=== PATIENT | female | born 1940 | race Caucasian/White ===

== ENCOUNTER 2016-12-19 15:31 | Inpatient (IN) | payer MEDICARE, BC ==
--- NOTE | ~2016-12-19 | OP ---
Record Of Operation [facility] [address] [place]. [address] NAME: PAM FRIEDMAN : 42 STATUS : ADM IN PAT#: [id number] AGE: 76 ADM/REG DATE : 12/19/16 MR#: [id number] REPORT SERV DATE: 12/20/16 DICTATED BY: BORIS FLORES DATE: 12/20/16 REPORT STATUS : Draft TRANSCRIBED BY: MODL DATE: 12/20/16 DATE OF PROCEDURE: 12/20/2016 PREOPERATIVE DIAGNOSIS: Left intertrochanteric femur fracture. POSTOPERATIVE DIAGNOSIS: Left intertrochanteric femur fracture. PROCEDURE: Open reduction and internal fixation of the left intertrochanteric femur fracture with trochanteric nail. SURGEON: Boris Flores M.D. [employer]IONICS SUPERVISOR: Korin Mullen. ANESTHESIA: General endotracheal. ESTIMATED BLOOD LOSS: 100 mL. COMPLICATIONS: None. DRAINS: None. IMPLANTS: [place] Gamma 3 nail. INDICATIONS FOR SURGERY: Ms Friedman is a 76-year-old female, who sustained the above-mentioned fracture in a fall. It was recommended that she undergo open reduction and internal fixation. Risks of the procedure as detailed in the orthopedic consult and operative consent were discussed prior to proceeding, and she fully understood, and has requested to proceed. DESCRIPTION OF PROCEDURE: The patient was brought to the operating room and after adequate induction of anesthesia was positioned on the [place] fracture table in the supine position. The nonoperative hip was placed in flexion and abduction to facilitate radiography. The operative leg was placed in gentle skin traction. The fracture was then reduced to a position of anatomic reduction. Appropriate reduction was confirmed using biplanar fluoroscopic guidance. The hip was then prepped and draped in the usual sterile fashion. A 3-4cm incision was made proximal to the tip of the greater trochanter using a #10 blade. The subcutaneous tissues were dissected sharply, electrocautery was used as needed to maintain hemostasis. The fascia gwen was divided in line with the incision. The guidewire for the Gamma III nail system was then placed in the tip of the greater trochanter, in line with the intramedullary canal of the femur. The appropriate guidewire placement was confirmed using biplanar fluoroscopy. The guidewire was then over reamed with a 15.5 mm starting reamer. Once the starting hole had been completed, a short Gamma nail was manually impacted over the guidewire to the appropriate depth. Appropriate nail placement was confirmed using biplanar Record Of Operation [place] [address] [place]. [address] NAME: PAM FRIEDMAN : 42 STATUS : ADM IN PAT#: [id number] AGE: 76 ADM/REG DATE : 12/19/16 MR#: [id number] REPORT SERV DATE: 12/20/16 DICTATED BY: BORIS FLORES DATE: 12/20/16 REPORT STATUS : Draft TRANSCRIBED BY: MODL DATE: 12/20/16 fluoroscopy. The proximal compression screw guides were then placed through a stab incision in the lateral aspect of the femur. A guide pin was placed in approximately the center position of the femoral head using biplanar fluoroscopic guidance. The guide pin was overreamed with the compression screw reamer and the depth measured for the compression screw. The compression screw was then placed to within 5mm of the subchondral bony plate of the femoral head. The proximal set screw was then placed in dynamic fashion. Attention was then turned to the distal locking screw. The screw was placed through a stab wound on the lateral aspect of the femur using the appropriate guides and fluoroscopic guidance. Once the screw had been fully tightened the guides were removed. Final fluoroscopic images were then obtained and saved in both planes. The wounds were then copiously irrigated with normal saline. The fascia gwen was closed with interrupted #1 Vicryl suture in [id number] fashion, the subcutaneous tissues were approximated with interrupted 2-0 Vicryl suture and the skin stapled. A sterile dressing was applied and the patient was awakened and taken to the Recovery Room in stable condition. POSTOP PLAN: The patient is to be mobilized weightbearing as tolerated on the operative lower extremity. The patient will be on Coumadin and mechanical DVT prophylaxis. KELY/JULIAN Boris Flores M.D. / [id number] CC: Kath Godoy M.D.
--- NOTE | ~2016-12-19 | HP ---
History And Physical [place] [id number] [facility] [place]. [address] NAME: PAM FRIEDMAN : 42 STATUS : ADM IN [facility]#: [id number] AGE: 76 ADM/REG DATE : 12/19/16 MR#: [id number] REPORT SERV DATE: 12/19/16 DICTATED BY: GODFREY NORMAN DATE: 12/19/16 REPORT STATUS : Draft TRANSCRIBED BY: JULIAN DATE: 12/19/16 DATE OF ADMISSION: 12/19/2016 HISTORY OF PRESENT ILLNESS: Ms. Friedman is a 76-year-old female patient, who was brought in because she accidentally fell at [facility] and could not get up. X-ray showed a left hip fracture and hence, she is being admitted for left hip fracture. The patient at this time states that she is unable to move her left leg , and there is pain in the left lower extremity. Other than that, there are no other complaints whatsoever now. REVIEW OF SYSTEMS: Negative for any blurry vision even though, the patient said that she had a little headache and was nauseated this morning before [facility]. There is no chest pain, shortness of breath above baseline, nausea and vomiting, abdominal pain right now. The patient denies any dysuria, hematuria, or blood in stool. The patient does complain of chronic back pain and has had difficulty walking because of the back pain before. Otherwise, review of systems for the rest of the systems were negative. PAST MEDICAL HISTORY: Significant for hypertension, hyperlipidemia, Graves disease with ophthalmopathy for which the patient had to have partial thyroidectomy just about a month and a half ago. The patient now is on replacement Synthroid therapy and also getting treatment for the Graves ophthalmopathy at the [facility]. The patient also has a history of chronic low back pain, dementia, difficulty walking mainly because of back pain issues. There is also diagnoses of generalized anxiety disorder and insomnia. PAST SURGICAL HISTORY: Significant for esophageal stretching in the past for which the patient has difficulty swallowing hard solid food off and on. The patient does great with soft mechanical diet however. SOCIAL HISTORY: The patient smokes about a half a pack to a pack a day. She denies any significant alcohol use or any illicit drug use. The patient lives primarily with daughter and son-in-law. FAMILY HISTORY: Positive for stroke and heart disease in father. Colon cancer on mother's side. ALLERGIES: THE PATIENT DOES NOT HAVE ANY KNOWN DRUG ALLERGIES. HOME MEDICATIONS: Reviewed and noted that she is on the following medications: Trazodone 50 mg p.o. at bedtime, aspirin 81 mg p.o. daily, calcium and vitamin D 500 mg p.o. b.i.d., Colace 100 mg p.o. b.i.d., tramadol 50 mg p.o. b.i.d. for the back pain, hydrochlorothiazide 25 mg once a day, multivitamin tablet, Prilosec 40 mg p.o. once a day, atenolol 25 mg p.o. daily, Aricept 10 mg p.o. daily, Zocor 20 mg p.o. daily, Xanax 1 mg p.o. at bedtime, History And Physical [address] [address] NAME: PAM FRIEDMAN : 42 STATUS : ADM IN [facility]#: [id number] AGE: 76 ADM/REG DATE : 12/19/16 MR#: [id number] REPORT SERV DATE: 12/19/16 DICTATED BY: GODFREY NORMAN DATE: 12/19/16 REPORT STATUS : Draft TRANSCRIBED BY: JULIAN DATE: 12/19/16 levothyroxine 88 mcg p.o. daily, Tylenol p.r.n., ibuprofen p.r.n., and also takes Proventil inhaler two puffs every four hours on an as needed basis for shortness of breath. PHYSICAL EXAMINATION: GENERAL: On examination, the patient is alert, oriented, and is able to give her history herself. VITAL SIGNS: The patient's vital signs at this time show that she has a blood pressure of 143/63, afebrile, pulse is 66 per minute, respirations 21 per minute, and oxygen saturation 96% on room air. 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 The patient however is able to see with both eyes clearly as of now. There is no facial droop or asymmetry. NECK: Examination of the neck does not reveal any masses or lymphadenopathy. There is no JVD. CARDIOVASCULAR SYSTEM: S1, S2 appreciated. Sinus rhythm. No murmurs, rubs, or gallops noted. RESPIRATORY SYSTEM: Clear lungs. No rales or rhonchi noted. ABDOMEN: Soft, nontender, nondistended. Bowel sounds are noted. No hepatosplenomegaly noted. No tenderness noted. EXTREMITIES: There is no pedal edema. Pedal pulses are felt in both feet, DP, PT.+. The patient's left lower extremity is turned outwards and rotated outwards from the left hip fracture. She is able to wiggle her toes on the left foot, but unable to move the left leg. However, the right leg is normal with normal movements. NEUROLOGIC: No deficits at this time, but the patient does have history of early mild dementia for which she has been evaluated by Dr. Barrera in the past and continues to be on Aricept. MUSCULOSKELETAL: The patient has low back pain issues that continue to bother her now and cause her to have difficulty walking even now. 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 PSYCHIATRIC: The patient does have insomnia and generalized anxiety for which she takes medications. LABORATORY DATA: At this time, urinalysis shows normal UA with small leukocyte esterase, but no evidence of infection. CBC shows WBC count of 11,000, hemoglobin and hematocrit normal, platelets normal, INR is normal. Electrolytes show that it is normal. BUN and creatinine are normal. Glucose is slightly elevated at 147. Troponin I is less than 0.02. The patient's EKG shows normal sinus rhythm and completely normal with no abnormalities. ASSESSMENT: 1. Left femoral fracture in a 76-year-old patient who probably has osteoporosis from multiple reasons including tobacco use and also from hyperthyroidism and Graves disease. Hence, this has resulted in left femoral fracture with low fall itself. Pain control and supportive care will be given, and Orthopedic Surgery will be consulted. 2. We will continue all her home medications for her hypertension, hyperlipidemia, also continue her medications that she takes for dementia that include Aricept and trazodone for sleep. We will decrease Xanax to 0.5 mg and also stop her tramadol. Instead we will give her Percocet 5/325 p.o. q.4 hours p.r.n. for pain and watch her. We will History And Physical [place] [address] [facility] [address] NAME: KINGPAM EDUARDO : 42 STATUS : ADM IN PAT#: [id number] AGE: 76 ADM/REG DATE : 12/19/16 MR#: [id number] REPORT SERV DATE: 12/19/16 DICTATED BY: GODFREY NORMAN DATE: 12/19/16 REPORT STATUS : Draft TRANSCRIBED BY: MODL DATE: 12/19/16 give her symptomatic and supportive care, and I will follow her along with Orthopedic Surgery. RRA/JULIAN Godfrey Norman M.D. / [id number] CC: Kath Godoy M.D.
--- NOTE | ~2016-12-19 | DS ---
Discharge Summary [facility] [address] [place]. [address] NAME: PAM RESENDIZ : 44 STATUS : ADM IN [facility]#: [id number] AGE: 76 ADM/REG DATE : 12/19/16 MR#: [id number] REPORT SERV DATE: 12/22/16 DICTATED BY: JASWANT HO DATE: 12/22/16 REPORT STATUS : Draft TRANSCRIBED BY: JULIAN DATE: 12/22/16 ADMISSION DATE: 12/19/2016 DISCHARGE DATE: 12/22/2016 DIAGNOSES ON ADMISSION: 1. Left femoral fracture. 2. History of dementia. 3. Anxiety. DIAGNOSES ON DISCHARGE: 1. Status post left femoral fracture, status post open reduction and internal fixation of the left intertrochanteric femur fracture with trochanteric nail on 12/20/2016. 2. Hypertension, controlled. 3. History of dementia. 4. History of Graves disease, status post partial thyroidectomy. On Synthroid chronically. HISTORY OF PRESENT ILLNESS: Per dictation of Dr. Marycruz Castillo who admitted this patient on 12/19/2016, and the patient was seen by Dr. Castillo until 12/21/2016, when I started to see this patient. The patient has been stable. She had an uneventful course after surgery. She is doing well, and she is undergoing physical therapy. Her blood pressure is controlled. Lab work looks good. She is ready to be discharged to rehab. Today, she was seen by Dr. Flores, and he recommended the patient to be discharged to rehab, as well as he recommended to follow up with him in three weeks. Her blood pressure has been in the normal range, 132/69 and 138/62. She is doing well. She is still complaining of postsurgical pain. Pain medications were prescribed by Dr. Mark Anne's nurse practitioner. DISCHARGE MEDICATIONS: Xanax 0.5 mg at bedtime, Tenormin 25 daily, calcium with vitamin D 600 p.o. b.i.d., Colace 100 mg b.i.d., Aricept 10 mg daily, iron 300 p.o. breakfast and supper, Synthroid 88 mcg, multivitamins daily, nicotine patch 21 mg daily, omeprazole 40 mg at bedtime, Zocor 20 mg daily, trazodone 50 mg at bedtime, Coumadin sliding scale was recommended per Dr. Juarez's nurse practitioner, aspirin 81 mg daily, tramadol 50 mg p.o. p.r.n. for pain. Prescription was given per nurse practitioner of Dayana Espinosa. The patient was recommended to discontinue ibuprofen. The patient was discharged to rehab in a stable condition. Spent 45 minutes on discharge. MG/MODL Jaswant Ho M.D. Discharge Summary [address] [place]. [address] NAME: PAM RESENDIZ : 42 STATUS : ADM IN [facility]#: [id number] AGE: 76 ADM/REG DATE : 12/19/16 MR#: [id number] REPORT SERV DATE: 12/22/16 DICTATED BY: JASWANT HO DATE: 12/22/16 REPORT STATUS : Draft TRANSCRIBED BY: JULIAN DATE: 12/22/16 / [id number] CC: Kath Tidwell M.D. William Hartley, M.D.
--- NOTE | ~2016-12-19 | CN ---
Consultation Report [facility] [address] [place]. [address] NAME: PAM FRIEDMAN : 42 STATUS : ADM IN PAT#: [id number] AGE: 76 ADM/REG DATE : 12/19/16 MR#: [id number] REPORT SERV DATE: 12/20/16 DICTATED BY: BORIS FLORES DATE: 12/20/16 REPORT STATUS : Draft TRANSCRIBED BY: MODL DATE: 12/20/16 DATE OF CONSULTATION: 12/20/2016 CHIEF COMPLAINT: Left hip pain. HISTORY: Ms Friedman is a 76-year-old female, who fell yesterday landing on her left side. She had immediate onset of severe left hip pain and was unable to ambulate after the fall. She presented to [facility] Emergency Room, where x-rays showed a displaced left intertrochanteric femur fracture. I have now been asked to see her for evaluation and treatment. On questioning, she complains of only left hip pain. She denies any mental status changes or loss of consciousness at the time of the fall. PHYSICAL EXAMINATION: GENERAL: She is awake and alert. She is oriented x2. NECK: Nontender. EXTREMITIES: She has no evidence of bony injury to either upper extremity or her right lower extremity. Her left lower extremity is shortened and externally rotated. MUSCULOSKELETAL: She has no pain with AP or lateral compression of her pelvis. She is unable to tolerate passive or active left hip range of motion due to severe pain. She has no tenderness in the mid thigh distally. She has an abrasion over the anterior aspect of her left knee. There was no knee effusion. Her knee range of motion is from 0 to 90 degrees limited by her hip pain. She has no evidence of varus or valgus instability of her knee. She has palpable pedal pulses and normal sciatic nerve function on the left. DIAGNOSTIC STUDIES: X-rays of her left hip show displaced left intertrochanteric femur fracture. IMPRESSION: Displaced left intertrochanteric femur fracture. PLAN: I have discussed treatment options with Ms Friedman with recommendation for open reduction and internal fixation. Risks of the procedure were discussed including infection, neurovascular damage, DVT, PE, blood loss requiring transfusion, nonunion, malunion, loss of fixation, possible future need for removal of hardware, anesthetic complications and others. She has a good understanding and has requested to proceed with surgical scheduling. KELY/JULIAN Boris Flores M.D. Consultation Report [facility] [address] [place] [address] NAME: PAM FRIEDMAN : 42 STATUS : ADM IN PAT#: [id number] AGE: 76 ADM/REG DATE : 12/19/16 MR#: [id number] REPORT SERV DATE: 12/20/16 DICTATED BY: BORIS FLORES DATE: 12/20/16 REPORT STATUS : Draft TRANSCRIBED BY: JULIAN DATE: 12/20/16 / [id number] CC: Kath Godoy M.D.
[2016-12-19] MEDS ORDERED: OS500+D PO (16:53)
[2016-12-19] MEDS ORDERED: HALF81 PO (16:53)
[2016-12-19] MEDS ORDERED: TRAZ50 PO (16:53)
[2016-12-19] MEDS ORDERED: ULTRAM50 PO ×2 (16:54)
[2016-12-19] MEDS ORDERED: HYDROCHLOROT25 MG PO (16:54)
[2016-12-19] MEDS ORDERED: DSS PO (16:54)
[2016-12-19] MEDS ORDERED: PRILOSEC40 MG PO (16:55)
[2016-12-19] MEDS ORDERED: ARICEPT10 PO (16:55)
[2016-12-19] MEDS ORDERED: ZOCOR20 PO (16:55)
[2016-12-19] MEDS ORDERED: MULTIVIT/MIN PO (16:55)
[2016-12-19] MEDS ORDERED: ATEN25 PO (16:55)
[2016-12-19] MEDS ORDERED: XANAX1 MG PO (16:56)
[2016-12-19] MEDS ORDERED: ACET500CAP PO (16:56)
[2016-12-19] MEDS ORDERED: SYN88 PO (16:56)
[2016-12-19] MEDS ORDERED: PROVHFA INH (16:57)
[2016-12-19] MEDS ORDERED: ADVIL PO (16:57)
[2016-12-19 17:25] LABS: ASCORBIC ACID (UR NOT ORDER) NEG (NEG); BILIRUBIN, URINE NEGATIVE (NEG); ER URINALYSIS TAT 0 Hrs 21 Mins; KETONE, URINE NEGATIVE (NEG); LEUKOCYTE ESTERASE(NOT OR SMALL (NEG); NITRITE (URINE) NEG (NEG); WBC (NOT ORDERED) (RFLEX) 3 (0-5)
[2016-12-19 17:30] LABS: BASOPHILS 0.3 %; BASOPHILS ABSOLUTE 0.03 10/3/uL (0.0-0.16); EOSINOPHILS 0.7 %; EOSINOPHILS ABSOLUTE 0.08 10/3/uL (0.0-0.53); ER CBC TAT 0 Hrs 09 Mins; HEMOGLOBIN 15.5 g/dL (12.0-16.0); IMMATURE GRANULOCYTES 0.2 %; IMMATURE GRANULOCYTES ABSOLUTE 0.02 10/3/uL (0.0-0.11); LYMPHOCYTES 13.5 %; LYMPHOCYTES ABSOLUTE 1.48 10/3/uL (0.67-4.30); MEAN CORPUSCULAR HEMOGLOB 35.1 pg (26.0-34.0); MEAN CORPUSCULAR VOLUME 98.2 fL (80-100); MEAN PLATELET VOLUME 9.5 fL (9.2-13.0); MONOCYTES 6.7 %; MONOCYTES ABSOLUTE 0.74 10/3/uL (0.21-1.20); NEUTROPHILS 78.6 %; NEUTROPHILS ABSOLUTE 8.64 10/3/uL (2.02-8.40); PLATELET COUNT 289 10/3/uL (150-400); RBC DISTRIBUTION WIDTH 13.3 % (12.0-16.0); RED CELL COUNT 4.41 10/6/uL (4.0-5.6)
[2016-12-19 17:32] LABS: HEMATOCRIT 43.3 % (36.0-48.0); MANUAL DIFF NO %; MEAN CORPUS HGB CONC 35.8 g/dL (32.0-36.0)
[2016-12-19 17:34] LABS: PROTIME (NOT ORD) 12.7 SEC (12.0-14.5)
[2016-12-19 17:35] LABS: PARTIAL THROMBO TIME 27.2 SEC (22.5-37.2)
[2016-12-19 17:44] LABS: BUN (BLOOD UREA NITROGEN) 12 MG/DL (6-23); CALCIUM, SERUM 8.8 MG/DL (8.5-10.4); CHEST PAIN PROFILE TAT 0 Hrs 23 Mins; CHLORIDE, SERUM 100 MMOL/L (96-112); CO2 (CARBON DIOXIDE) 34 MMOL/L (24-34); CREATININE 0.68 MG/DL (0.55-1.02); GFR AFRICAN AMERICAN 100 ML/MIN (>=60); GFR NON AFRICAN AMERICAN 86 ML/MIN (>=60); GLUCOSE, SERUM 147 MG/DL (60-99); POTASSIUM, SERUM 3.7 MMOL/L (3.5-5.3); SODIUM, SERUM 141 MMOL/L (135-148); TROPONIN I <0.02 NG/ML (<0.05)
[2016-12-19 21:36] LABS: FREE T4 1.15 NG/DL (0.76-1.46)
[2016-12-21 04:48] LABS: HEMOGLOBIN 12.6 g/dL (12.0-16.0)
[2016-12-21 04:49] LABS: HEMATOCRIT 35.9 % (36.0-48.0)
[2016-12-21 04:52] LABS: INTERNATIONAL NORMAL RATI 1.3 UNITS (-)
[2016-12-21 04:54] LABS: PROTIME (NOT ORD) 15.7 SEC (12.0-14.5)
[2016-12-21 05:02] LABS: CALCIUM, SERUM 8.8 MG/DL (8.5-10.4); CHLORIDE, SERUM 97 MMOL/L (96-112); CO2 (CARBON DIOXIDE) 32 MMOL/L (24-34); CREATININE 0.55 MG/DL (0.55-1.02); GFR AFRICAN AMERICAN 107 ML/MIN (>=60); GFR NON AFRICAN AMERICAN 92 ML/MIN (>=60); GLUCOSE, SERUM 120 MG/DL (60-99); POTASSIUM, SERUM 3.6 MMOL/L (3.5-5.3); SODIUM, SERUM 137 MMOL/L (135-148)
[2016-12-21 05:06] LABS: BUN (BLOOD UREA NITROGEN) 6 MG/DL (6-23)
[2016-12-22 04:58] LABS: BUN (BLOOD UREA NITROGEN) 10 MG/DL (6-23); CALCIUM, SERUM 8.7 MG/DL (8.5-10.4); CHLORIDE, SERUM 102 MMOL/L (96-112); CO2 (CARBON DIOXIDE) 30 MMOL/L (24-34); CREATININE 0.44 MG/DL (0.55-1.02); GFR AFRICAN AMERICAN 115 ML/MIN (>=60); GFR NON AFRICAN AMERICAN 99 ML/MIN (>=60); GLUCOSE, SERUM 90 MG/DL (60-99); INTERNATIONAL NORMAL RATI 1.3 UNITS (-); POTASSIUM, SERUM 3.4 MMOL/L (3.5-5.3); PROTIME (NOT ORD) 16.4 SEC (12.0-14.5); SODIUM, SERUM 141 MMOL/L (135-148)
[2016-12-22 05:01] LABS: HEMATOCRIT 33.1 % (36.0-48.0); HEMOGLOBIN 11.5 g/dL (12.0-16.0)
== END 2016-12-22 12:00 | DRG 482 ==
LOC: ER 15:31 → 5SO 17:00 → 3SO 12-20 19:36
PROVIDERS: Emergency Medicine; Hospitalist; Specialist
PROC: 0QS904Z Reposition Left Femoral Shaft with Internal Fixation Device, Open Approach (ICD-10-PCS; principal; 2016-12-19)
DX: S72.002A Fracture of unspecified part of neck of left femur, initial encounter for closed fracture (principal); F03.90 Unspecified dementia, unspecified severity, without behavioral disturbance, psychotic disturbance, mood disturbance, and anxiety; E05.00 Thyrotoxicosis with diffuse goiter without thyrotoxic crisis or storm; I10 Essential (primary) hypertension; E78.5 Hyperlipidemia, unspecified
CPT/HCPCS: 71010; 73552-LT; 80048; 81001; 83735; 84439; 84443; 84484; 85014; 85018; 85025; 85610; 85730; 87086; 97110-GP; 97116-GP; 97161-GP; 97166-GO; 99285; A9270-GY; C1713; G8978-CK-GP; G8979-CJ-GP; J0690; J1170; J2370; J2405; J2710; J3010